=== PATIENT | male | born 1950 | race Caucasian/White ===

== ENCOUNTER → 2023-04-14 07:25 | Outpatient (REF) | payer MEDICARE, OTHER, SELFPAY ==
[2023-04-14 08:55] LABS: % Basophils 0.9 % (0-2); % Eosinophils 4.9 % (0-6); % Immature Granulocytes 0.4 % (0-0.5); % Lymphocytes 17.2 % (20.5-51.1); % Monocytes 7.9 % (1.7-9.3); % Neutrophils 68.7 % (42.2-75.2); Absolute Basophils 0.1 10^3/uL (0-0.2); Absolute Eosinophils 0.6 10^3/uL (0-0.7); Absolute Immature Granulocytes 0.1 10^3/uL (0-0.05); Absolute Lymphocytes 1.9 10^3/uL (1.2-3.4); Absolute Monocytes 0.9 10^3/uL (0.1-0.6); Absolute Neutrophils 7.7 10^3/uL (1.4-6.5); Hematocrit 43.7 % (39.0-52.0); Hemoglobin 14.3 g/dL (13.0-18.0); Mean Corp Hgb Conc. 32.7 g/dL (33.0-37.0); Mean Corpuscular Hgb 30.8 pg (27.0-31.0); Mean Corpuscular Volume 94.2 fL (80.0-94.0); Mean Platelet Volume 10.3 fL (7.4-10.4); Nucleated Red Blood Cells % 0 % (-); Platelet Count 234 10^3/uL (130-400); Red Blood Cell Count 4.64 10^6/uL (4.70-6.10); Red Cell Dist. Width 12.6 % (11.5-14.5); White Blood Cell Count 11.2 10^3/uL (4.8-10.8)
[2023-04-14 09:33] LABS: ALT (SGPT) 29 U/L (0-50); AST (SGOT) 29 U/L (17-59); Albumin 4.2 g/dl (3.5-5.0); Alkaline Phosphatase 93 U/L (38-126); Blood Urea Nitrogen 19 mg/dl (9-20); Calcium 9.3 mg/dl (8.4-10.2); Carbon Dioxide 25 mmol/L (22-30); Chloride 103 mmol/L (98-107); Glucose 113 mg/dl (70-99); HDL Cholesterol 39 mg/dl; LDL Cholesterol, Calculated 50 mg/dl; Potassium 4.4 mmol/L (3.5-5.1); Sodium 136 mmol/L (135-145); Total Bilirubin 0.9 mg/dl (0.2-1.3); Total Cholesterol 142 mg/dl (50-199); Triglyceride 265 mg/dl (10-149); Very Low Density Lipoprotein 53 mg/dl (0-30); eGFR > 60.00
[2023-04-14 11:36] LABS: Glycohemoglobin (HgbA1c) 6.3 % (4.0-5.6)
== END ==
LOC: HWLAB 07:25
PROVIDERS: ATTENDING PHYSICIAN Family Medicine
DX: E78.2 Mixed hyperlipidemia (principal); R73.01 Impaired fasting glucose; G62.9 Polyneuropathy, unspecified
CPT/HCPCS: 36415; 80053; 80061; 83036; 85025

== ENCOUNTER → 2023-09-21 07:47 | Outpatient (REF) | payer MEDICARE, OTHER, SELFPAY ==
[2023-09-21 09:51] LABS: % Basophils 0.7 % (0-2); % Immature Granulocytes 0.5 % (0-0.5); % Lymphocytes 18.3 % (20.5-51.1); % Monocytes 7.8 % (1.7-9.3); % Neutrophils 69.7 % (42.2-75.2); Absolute Basophils 0.1 10^3/uL (0-0.2); Absolute Eosinophils 0.4 10^3/uL (0-0.7); Absolute Immature Granulocytes 0.1 10^3/uL (0-0.05); Absolute Lymphocytes 2.1 10^3/uL (1.2-3.4); Absolute Monocytes 0.9 10^3/uL (0.1-0.6); Absolute Neutrophils 8.1 10^3/uL (1.4-6.5); Hematocrit 41.1 % (39.0-52.0); Hemoglobin 13.9 g/dL (13.0-18.0); Mean Corp Hgb Conc. 33.8 g/dL (33.0-37.0); Mean Corpuscular Hgb 31.4 pg (27.0-31.0); Mean Corpuscular Volume 92.8 fL (80.0-94.0); Mean Platelet Volume 10.6 fL (7.4-10.4); Nucleated Red Blood Cells % 0 % (-); Platelet Count 246 10^3/uL (130-400); Red Blood Cell Count 4.43 10^6/uL (4.70-6.10); Red Cell Dist. Width 12.8 % (11.5-14.5); White Blood Cell Count 11.7 10^3/uL (4.8-10.8)
[2023-09-21 10:21] LABS: ALT (SGPT) 25 U/L (0-50); AST (SGOT) 28 U/L (17-59); Albumin 4.7 g/dl (3.5-5.0); Alkaline Phosphatase 102 U/L (38-126); Blood Urea Nitrogen 21 mg/dl (9-20); Carbon Dioxide 25 mmol/L (22-30); Chloride 101 mmol/L (98-107); Glucose 112 mg/dl (70-99); HDL Cholesterol 45 mg/dl; LDL Cholesterol, Calculated 70 mg/dl; Sodium 137 mmol/L (135-145); Total Bilirubin 0.9 mg/dl (0.2-1.3); Total Cholesterol 144 mg/dl (50-199); Total Protein 7.4 g/dl (6.3-8.2); Triglyceride 148 mg/dl (10-149); Very Low Density Lipoprotein 29 mg/dl (0-30); eGFR > 60.00
[2023-09-21 10:47] LABS: Glycohemoglobin (HgbA1c) 6.2 % (4.0-5.6)
== END ==
LOC: RAD 07:47
PROVIDERS: ATTENDING PHYSICIAN Urology; FAMILY PHYSICIAN Family Medicine
DX: C67.2 Malignant neoplasm of lateral wall of bladder (principal); I82.210 Acute embolism and thrombosis of superior vena cava; E78.2 Mixed hyperlipidemia; R73.01 Impaired fasting glucose; G62.9 Polyneuropathy, unspecified
CPT/HCPCS: 36415; 71260; 74178; 80053; 80061; 83036; 85025; Q9967

== ENCOUNTER 2023-10-06 19:54 | Emergency (ER) | payer MEDICARE, OTHER, SELFPAY ==
[2023-10-06 19:54] VITALS: BMI 34.4
[2023-10-06 19:55] VITALS: BP 133/98
[2023-10-06 20:31] LABS: % Basophils 0.7 % (0-2); % Eosinophils 3.4 % (0-6); % Immature Granulocytes 0.6 % (0-0.5); % Monocytes 7.5 % (1.7-9.3); % Neutrophils 66.8 % (42.2-75.2); Absolute Basophils 0.1 10^3/uL (0-0.2); Absolute Eosinophils 0.4 10^3/uL (0-0.7); Absolute Immature Granulocytes 0.1 10^3/uL (0-0.05); Absolute Lymphocytes 2.2 10^3/uL (1.2-3.4); Absolute Monocytes 0.8 10^3/uL (0.1-0.6); Hematocrit 39.2 % (39.0-52.0); Hemoglobin 13.4 g/dL (13.0-18.0); Mean Corp Hgb Conc. 34.2 g/dL (33.0-37.0); Mean Corpuscular Volume 90.7 fL (80.0-94.0); Mean Platelet Volume 10.4 fL (7.4-10.4); Nucleated Red Blood Cells % 0 % (-); Platelet Count 219 10^3/uL (130-400); Red Blood Cell Count 4.32 10^6/uL (4.70-6.10); Red Cell Dist. Width 12.7 % (11.5-14.5); White Blood Cell Count 10.5 10^3/uL (4.8-10.8)
[2023-10-06 20:32] LABS: Urine Albumin Negative (Neg - Trace); Urine Bilirubin Negative (Negative); Urine Character Clear (Clear); Urine Color Yellow; Urine Glucose Negative (Negative); Urine Ketone Negative (Negative); Urine Leukocyte 1+ (Negative); Urine Nitrite Negative (Negative); Urine Occult Blood 1+ (Negative); Urine Specific Gravity 1.015 (<1.030); Urine Urobilinogen Negative (Neg - 1+)
[2023-10-06 20:39] LABS: Urine Squamous Cell 0-2 /LPF (Few); Urine White Cell 50-60 /HPF (0-5)
[2023-10-06 20:40] LABS: Urine Bacteria Many (Negative)
[2023-10-06 20:45] LABS: ALT (SGPT) 24 U/L (0-50); AST (SGOT) 26 U/L (17-59); Albumin 4.3 g/dl (3.5-5.0); Alkaline Phosphatase 112 U/L (38-126); Blood Urea Nitrogen 22 mg/dl (9-20); Calcium 9.5 mg/dl (8.4-10.2); Carbon Dioxide 25 mmol/L (22-30); Chloride 105 mmol/L (98-107); Glucose 188 mg/dl (70-99); Potassium 4.2 mmol/L (3.5-5.1); Sodium 139 mmol/L (135-145); Total Bilirubin 0.5 mg/dl (0.2-1.3); Total Protein 6.9 g/dl (6.3-8.2); eGFR > 60.00
--- NOTE | 2023-10-06 23:15 | ED.GENMED ---
History of Present Illness
<CANDIE Moraes (Lena) - Last Filed: 10/07/23 02:05>
General
Chief Complaint: Dizziness
Source: patient
Exam Limitations: none
Time Seen by Provider: 10/06/23 22:36
Nursing documentation reviewed up to this point in time: agreed with
History of Present Illness
History of Present Illness:
Pt is a 72yo male with PMHx of bladder cancer s/p chemo (06/2020) and radical cystoprostatectomy s/p ileal conduit diversion (06/2020), and HTN presents to the ED for dizziness with standing since this morning. Pt states he tried standing up from the
couch today, felt 'wobbly' failed to maintain his balance, and had to sit back down. He has not tried to stand up and move around much today since. He reports similar symptoms with prior UTIs in the past. Unknown when last UTI was. He noted that his
urine from his ileal diversion was 'darker colored' this morning. He denies fevers, cough, SOB, chest pain or palpitations, double vision, weakness. No lightheadedness or instability at rest. No abdominal pain or back pain, no change in bowel
habits. States he has been maintaining adequate hydration with drinking 1-2 bottles of water per day. Reports his ileal diversion was last changed this morning, and is changed every 4 days. Pt with difficulty word-finding and hand tremors at rest.
States he has memory loss and tremors that he sees a neurologist for, next appointment on 10/20/23.
Unsure when his last dose of antibiotics was, states it has been months.
Of note, pt had a recent fall with PT 2 weeks ago where he suffered an eyebrow laceration, treated at OSH ([facility]).
Pt lives at home with his son, who brought him in tonight.
Past History
<CANDIE Moraes (Lena) - Last Filed: 10/07/23 02:05>
Past History
ED Past Medical History: Cancer (Bladder), HTN, Hypercholesterolemia and Other (urine retention, gastric ulcers)
ED Past Surgical History: Other (urostomy)
Patient has exhibited threatening behavior?: No
PSI?: No
Social History
Tobacco: Former smoker
Alcohol: None
Personal: Single
Living: alone
Family History
Family History: Other (noncontributory)
Phy Exam
<CANDIE Moraes (Lena) - Last Filed: 10/07/23 02:05>
General Physical Exam
General Presentation: no apparent distress
General age: appears stated age
General Skin: warm and dry
General Habitus: elderly and obese
General Mental: alert
General Hydration: appears well hydrated
General Chronic Disability: other (ileal diversion urostomy)
Cardiovascular Exam
Cardiovascular Exam: regular rate/rhythm, no edema, no gallop, no murmur and normal peripheral pulses
Pulmonary Exam
Pulmonary Exam: no respiratory distress and no cough
Cough: no cough
Gastrointestinal Exam
Gastrointestinal Exam: normal bowel sounds
External Findings: other (ileal diversion urostomy)
Palpation: left upper quadrant: No tenderness, left lower quadrant: No tenderness, right upper quadrant: No tenderness, right lower quadrant: No tenderness and generalized: No tenderness
Neurological Exam
Neurological Exam: alert, oriented x3 and other (pt with trouble word-finding)
Skin Exam
Skin Exam: normal color, warm/dry and no rash
Psychiatric Exam
Psychiatric Exam: normal mood/affect
Course
<CANDIE Moraes (Lena) - Last Filed: 10/07/23 02:05>
Orders/Labs/Results
Orders:
Orders
10/06/23 20:00
EKG [Electrocardiogram (*1)] Urgent
Reason for Study: Vertigo / Dizzy
EKG- Treatment ONCE
10/06/23 20:21
CBC/With Diff [Complete Blood Count/With Diff] Urgent
CMP [Comprehensive Metabolic Panel] Urgent
Urinalysis Reflex To Culture Urgent
Date Specimen was Collected: 10/06/23
Time Specimen was Collected: 20:00
Urine Microscopic Reflex Cult Urgent
Urine Culture Urgent
MYRIAM Source: U
Specimen Description:
Date Specimen was Collected: 10/06/23
Time Specimen was Collected: 20:00
10/06/23 23:23
Orthostatic VS- Treatment ONCE
10/07/23 00:00
Doxycycline [Vibramycin] 100 mg PO NOW STA
10/07/23 00:03
Meclizine [Antivert] 25 mg PO NOW STA
Abnormal Lab Results
10/06/23
20:21
RBC 4.32 L 10^6/uL
(4.70-6.10)
Abs Immat Gran (auto) 0.1 H 10^3/uL
(0-0.05)
Absolute Neuts (auto) 7.0 H 10^3/uL
(1.4-6.5)
Absolute Monos (auto) 0.8 H 10^3/uL
(0.1-0.6)
Immature Gran % 0.6 H %
(0-0.5)
BUN 22 H mg/dl
(9-20)
Glucose 188 H mg/dl
(70-99)
Ur Occult Blood Reflex 1+ A
(Negative)
Leukocyte Esterase Rfl 1+ A
(Negative)
Urine RBC 7-10 A /HPF
(0-2)
Urine WBC (Reflex) 50-60 A /HPF
(0-5)
Urine Bacteria (Reflex) Many A
(Negative)
10/06/23 20:21
10/06/23 20:21
Vital Signs
Initial and Last Documented VS:
Initial Vital Signs
Temp Pulse Resp BP Pulse Ox
97.6 F 72 18 133/98 97
10/06/23 19:55 10/06/23 19:55 10/06/23 19:55 10/06/23 19:55 10/06/23 19:55
Last Documented Vital Signs
Temp Pulse Resp BP Pulse Ox
97.6 F 72 18 119/74 97
10/06/23 19:55 10/06/23 19:55 10/06/23 19:55 10/07/23 01:00 10/07/23 00:11
<Patricia Goins, DO - Last Filed: 10/07/23 01:41>
Orders/Labs/Results
Orders:
Orders
10/06/23 20:00
EKG [Electrocardiogram (*1)] Urgent
Reason for Study: Vertigo / Dizzy
EKG- Treatment ONCE
10/06/23 20:21
CBC/With Diff [Complete Blood Count/With Diff] Urgent
CMP [Comprehensive Metabolic Panel] Urgent
Urinalysis Reflex To Culture Urgent
Date Specimen was Collected: 10/06/23
Time Specimen was Collected: 20:00
Urine Microscopic Reflex Cult Urgent
Urine Culture Urgent
MYRIAM Source: U
Specimen Description:
Date Specimen was Collected: 10/06/23
Time Specimen was Collected: 20:00
10/06/23 23:23
Orthostatic VS- Treatment ONCE
10/07/23 00:00
Doxycycline [Vibramycin] 100 mg PO NOW STA
10/07/23 00:03
Meclizine [Antivert] 25 mg PO NOW STA
Abnormal Lab Results
10/06/23
20:21
RBC 4.32 L 10^6/uL
(4.70-6.10)
Abs Immat Gran (auto) 0.1 H 10^3/uL
(0-0.05)
Absolute Neuts (auto) 7.0 H 10^3/uL
(1.4-6.5)
Absolute Monos (auto) 0.8 H 10^3/uL
(0.1-0.6)
Immature Gran % 0.6 H %
(0-0.5)
BUN 22 H mg/dl
(9-20)
Glucose 188 H mg/dl
(70-99)
Ur Occult Blood Reflex 1+ A
(Negative)
Leukocyte Esterase Rfl 1+ A
(Negative)
Urine RBC 7-10 A /HPF
(0-2)
Urine WBC (Reflex) 50-60 A /HPF
(0-5)
Urine Bacteria (Reflex) Many A
(Negative)
10/06/23 20:21
10/06/23 20:21
Vital Signs
Initial and Last Documented VS:
Initial Vital Signs
Temp Pulse Resp BP Pulse Ox
97.6 F 72 18 133/98 97
10/06/23 19:55 10/06/23 19:55 10/06/23 19:55 10/06/23 19:55 10/06/23 19:55
Last Documented Vital Signs
Temp Pulse Resp BP Pulse Ox
97.6 F 72 18 119/74 97
10/06/23 19:55 10/06/23 19:55 10/06/23 19:55 10/07/23 01:00 10/07/23 00:11
<CANDIE Moraes (Lena) - Last Filed: 10/07/23 02:05>
MDM/Problems Addressed
Differential Diagnosis Includes:
Pt is a 72yo male with PMHx of bladder cancer s/p chemo (06/2020) and radical cystoprostatectomy s/p ileal conduit diversion (06/2020), and HTN presents to the ED for dizziness with standing since this morning. He states he felt 'wobbly' and
imbalanced when attempting to stand, but denied visual changes. Orthostatic vitals were obtained and were negative, ruling out orthostatic hypotension. Pt states he has been maintaining adequate hydration with 1-2 bottles of water consumed daily.
Other sources of infection were considered, but he presents asymptomatic in regards to fevers, chest pain, dyspnea, abdominal pain, back pain. A UA was obtained and was positive for leuk esterase, WBC 50-60/HPF, and significant bacteruria. Pt will
be treated with a course of doxycycline.
Chronic conditions affecting care: HTN and Cancer (bladder)
<Patricia Goins DO - Last Filed: 10/07/23 01:41>
*Pulse Oximetry
Patient hypoxic: no
*Critical Care Note
Total Time (30-74mins, 75-104mins- exclusive of procedures): Not Applicable
ED Attending Note
<CANDIE Moraes (Lena) - Last Filed: 10/07/23 02:05>
-
Portions of this chart may have been created with voice recognition software.� Occasional wrong word or��sound alike� substitutions may have occurred due to the inherent limitations of voice recognition software.
<Patricia Goins DO - Last Filed: 10/07/23 01:41>
ED Attending Note
Patient seen and examined by attending physician: Yes
I performed the substantive portion of visit, reviewed & personally made and approve the management plan that is documented in note by myself or NAY.: Yes
ED Attending Note:
This is a 72-year-old gentleman who resides at home with his son. He has history of bladder cancer status post radical cystectomy with ileal conduit formation 2020, status post chemotherapy, follows regularly with urology, Dr. Lizama with
surveillance CTs, thus far no evidence of recurrence.
He also has history of hypertension, hyperlipidemia, peptic ulcer disease, mild dementia as well as tremor and prior history of UTIs with hospitalization June 2022 for UTI/sepsis and hospitalization December 2021 for similar complaints of dizziness,
lightheadedness December 2021. Noted to have UTI at that time. CT as well as MRI of the brain showed no evidence of acute stroke.
He presents tonight with complaints of dizziness, feeling wobbly with standing that began this morning upon standing. He is unsure if he felt lightheaded versus a sense of movement but no other associated symptoms. No nausea or vomiting, no
headache, no fever or chills, no chest pain or palpitations, no abdominal pain, no diarrhea nor constipation.
Ileal conduit has been functioning normally. He does note that his urine was somewhat darker in color today but denies hematuria.
He has been drinking fluids well.
He notes similar symptoms of lightheadedness, dizziness with previous UTIs.
GENERAL: Alert , in no apparent distress. 72-year-old gentleman appears his stated age, appears in no acute distress. Afebrile. Normotensive.
EYE: pupils equal and reactive. anicteric. Extraocular muscles intact. Minimal lateral gaze nystagmus bilaterally. Negative test of skew.
NECK: Supple, nontender, no meningismus, no significant adenopathy.
ENT: posterior pharynx is clear, oral mucosa is moist. TM clear b/l, nares patent.
CARDIAC: Regular rate and rhythm. no murmur.
LUNGS: Clear breath sounds bilaterally, no acute respiratory distress, no wheezes/rales/rhonchi
ABDOMEN: Rotund, soft, nondistended, without focal tenderness, ileal conduit left mid abdomen draining clear yellow urine. No r/g, no cvat. normoactive BS.
NEUROLOGICAL: Alert and oriented x3, no focal neuro deficits. Mild intention tremor of upper extremities. Mild cogwheel rigidity of bilateral upper extremities. No focal weakness.
SKIN: Warm and dry, normal color, skin intact. No rash.
MUSCULOSKELETAL: No C/C/E. peripheral pulses are full and equal b/l. No palpable tenderness.
PSYCH: Normal and appropriate interaction.
Concern for vertigo peripheral versus central, concern for orthostasis. Other consideration is arrhythmia however the palpitations and symptoms only occur with standing this unlikely.
Concern for UTI as patient has had somewhat similar symptoms with previous UTIs.
Labs are reassuring with normal white blood cell count, unremarkable chemistries with creatinine of 1.2, at his baseline. Glucose 188. Similar sporadic elevations noted previously and I suspect an element of impaired fasting glucose. No previous
diagnosis of diabetes and no acidosis on electrolytes.
Urinalysis consistent with UTI showing many bacteria, 50-60 WBCs, 7-10 RBCs.
Vital signs are reassuring, he remains afebrile.
Will check orthostatic vital signs assess for potential orthostasis as cause for symptoms.
Will initiate doxycycline for UTI.
At this point no indication for imaging but will consider if clinical status changes.
10/07/2023 0005 AM
Orthostatic vital signs are negative.
Patient noted brief dizziness with change in position from lying to sitting but asymptomatic from sitting to standing.
I do suspect an element of vertigo and patient notes prior history of vertigo.
Will trial a dose of Antivert and continue to observe.
Again, reassuring that symptoms are very brief in nature without other associated symptoms.
10/07/2023 0139 AM
Patient feeling improved after dose of meclizine.
Remains hemodynamically stable.
No further dizziness.
Will discharge to home with 10-day course of doxycycline for UTI as well is a prescription for meclizine for as needed dizziness.
Discussed importance of remaining well-hydrated on a daily basis.
Encouraged to use his walker to assist with ambulation.
Follow-up with PCP as well as urologist and continue follow-up with neurologist as scheduled.
Return precautions discussed.
Discharge Plan
Departure
Patient Disposition: Home (Routine Discharge)
Date of Disposition: 10/07/23
Time of Disposition: 01:36
Patient with high blood pressure during this ER visit?: No
Condition: Good
Discharge Problem:
Dizziness on standing, Urinary tract infection
Instructions: Vertigo (a Type of Dizziness) (DC), Urinary Tract Infection - Men
Prescriptions:
New
doxycycline monohydrate 100 mg capsule
100 mg PO BID Qty: 20 1RF
meclizine 25 mg tablet
25 mg PO QID PRN (Reason: dizziness) Qty: 20 0RF
No Action
atorvastatin 40 MG tablet
40 mg PO DAILY
metoprolol succinate [Toprol XL] 50 MG tablet extended release 24 hr
50 mg PO DAILY
cyanocobalamin (vitamin B-12) 1,000 mcg Tablet
1,000 mcg PO DAILY
therapeutic multivitamin Tablet
1 tab PO DAILY
famotidine [Pepcid] 20 mg Tablet
20 mg PO DAILY PRN (Reason: heartburn)
gabapentin 100 mg capsule
100 mg PO TID
polyethylene glycol 3350 [HealthyLax] 17 gram Powder In Packet
17 g PO DAILY PRN (Reason: Constipation) Qty: 14 0RF
Referrals:
Rashaad Hanna MD [Family Provider] - Call in 1-3 days for appt
Kalia Lizama MD [Active] - Call in 1-3 days for appt
Interventions
Interventions:
*Risk Screen - Suicide Last Done: 10/06/23 19:55
*General Assessment Last Done: 10/06/23 23:40
*Neglect/Abuse Screening Last Done: 10/06/23 23:40
ED- Fall Risk Assessment Last Done: 10/06/23 23:40
*ED COVID-19 Vaccine History Last Done: 10/06/23 23:40
Discharge Date and Time
Print Language: AMHARIC
[2023-10-06 23:23] VITALS: BP 126/100; BP 132/92; BP 148/83; PULSE 64; PULSE 72; PULSE 94
[2023-10-06 23:29] VITALS: BP 132/92
[2023-10-06 23:33] VITALS: BP 126/100
[2023-10-06 23:36] VITALS: BP 148/83
[2023-10-07] VITALS: BP 128/73
[2023-10-07] MEDS: VIBRAMYCIN 100 MG PO (00:10)
[2023-10-07] MEDS: ANTIVERT 25 MG PO (00:11)
[2023-10-07 01:00] VITALS: BP 119/74
[2023-10-07 02:00] VITALS: BP 137/77
[2023-10-07 03:00] VITALS: BP 149/69
== END 2023-10-07 03:49 | disposition home or self-care (01) ==
LOC: EMR 19:54
PROVIDERS: Emergency Medicine; EMERGENCY PHYSICIAN Emergency Medicine; FAMILY PHYSICIAN Family Medicine
DX: R42 Dizziness and giddiness (principal); N39.0 Urinary tract infection, site not specified; I10 Essential (primary) hypertension; E78.00 Pure hypercholesterolemia, unspecified; Z85.51 Personal history of malignant neoplasm of bladder; Z87.11 Personal history of peptic ulcer disease; Z87.440 Personal history of urinary (tract) infections; Z87.891 Personal history of nicotine dependence; Z92.21 Personal history of antineoplastic chemotherapy
CPT/HCPCS: 99283; 80053; 81003; 81015; 85025; 87086

== ENCOUNTER 2024-03-14 08:11 | Emergency (ER) | payer MEDICARE, OTHER, SELFPAY ==
[2024-03-14 08:14] VITALS: BP 165/76
--- NOTE | 2024-03-14 09:39 | ED.GENMED ---
History of Present Illness
General
Chief Complaint: Male Genito-Urinary Symptoms
Source: patient
Exam Limitations: none
Time Seen by Provider: 03/14/24 09:22
Nursing documentation reviewed up to this point in time: agreed with
History of Present Illness
History of Present Illness:
Patient with history of bladder cancer and chronic urostomy bag, presents to ED for an evaluation after he accidentally removed the urostomy bag this morning. Patient states that he had 'nightmare' and excellently removed the bag. When he
reattached the urostomy bag, he noted 'blood' in the bag. Patient does not take any blood thinning medications. Denies previous history of similar symptoms. Denies recent trauma. Denies dizziness or weakness.
Past History
Past History
ED Past Medical History: Cancer (Bladder), HTN, Hypercholesterolemia and Other (urine retention, gastric ulcers)
ED Past Surgical History: Other (urostomy)
Patient has exhibited threatening behavior?: No
PSI?: No
Social History
Tobacco: Former smoker
Alcohol: None
Personal: Single
Living: alone
Family History
Family History: Other (noncontributory)
Review of Systems
Review of Systems
Allergies reviewed?: Yes
All Other Systems: ROS reviewed and negative except as documented in HPI and ROS
Constitutional: Reports no symptoms; Denies fever or chills
ABD/GI: Reports no symptoms; Denies abdominal pain, nausea or vomiting
: Reports bleeding
Musculoskeletal: Reports no symptoms
Skin: Reports no symptoms
Neurological: Reports no symptoms; Denies weakness
Phy Exam
Physical Exam
Physical Exam:
Physical Exam
General: no apparent distress, not acutely ill. afebrile.
Head: nc/at. eomi
Neck: supple. normal range of motion.
Abdomen: normal bowel sounds. not tender. urostomy bag noted with dark urine inside
Neuro: alert and oriented. no focal neurological deficits
Skin: no rash
Psychiatric: well kept. interactive and cooperative
Extremities: no edema. no calf tenderness.
Course
Orders/Labs/Results
Orders:
Orders
03/14/24 09:35
Urinalysis Reflex To Culture Urgent
Date Specimen was Collected: 03/14/24
Time Specimen was Collected: 09:34
Urine Microscopic Reflex Cult Urgent
Urine Culture Urgent
MYRIAM Source: U
Specimen Description:
Date Specimen was Collected: 03/14/24
Time Specimen was Collected: 09:34
Abnormal Lab Results
03/14/24
09:35
Ur Occult Blood Reflex 4+ A
(Negative)
Leukocyte Esterase Rfl 1+ A
(Negative)
Urine RBC 70-80 A /HPF
(0-2)
Urine WBC (Reflex) 16-20 A /HPF
(0-5)
Urine Bacteria (Reflex) Moderate A
(Negative)
Vital Signs
Initial and Last Documented VS:
Initial Vital Signs
Temp Pulse Resp BP Pulse Ox
97.5 F 61 16 165/76 98
03/14/24 08:14 03/14/24 08:14 03/14/24 08:14 03/14/24 08:14 03/14/24 08:14
Last Documented Vital Signs
Temp Pulse Resp BP Pulse Ox
97.5 F 60 18 119/72 98
03/14/24 08:14 03/14/24 09:55 03/14/24 09:55 03/14/24 10:14 03/14/24 09:55
MDM/Problems Addressed
MDM/Problems Addressed:
Upon gross evaluation, no overt evidence of bleeding noted within urostomy bag. Urinalysis result reviewed and discussed with on-call urology, , who feels that patient's urine result is likely colonization, not necessarily infection. Does
not recommend antibiotic treatment at this time. However, does recommend that patient keeps close eye on his urine color, and if bloody urine persists, recommends tat patient call urology office for an outpatient evaluation with his primary
urologist, Dr. Lizama.
Patient expresses understanding, at time of discharge, to the care of his family.
*Critical Care Note
Total Time (30-74mins, 75-104mins- exclusive of procedures): Not Applicable
ED Attending Note
-
Portions of this chart may have been created with voice recognition software.� Occasional wrong word or��sound alike� substitutions may have occurred due to the inherent limitations of voice recognition software.
Discharge Plan
Departure
Patient Disposition: Home (Routine Discharge)
Date of Disposition: 03/14/24
Time of Disposition: 11:05
Patient with high blood pressure during this ER visit?: Yes
Condition: Good
Discharge Problem:
Hematuria
Instructions: Blood in the Urine (Hematuria), Adult (DC)
Prescriptions:
No Action
atorvastatin 40 MG tablet
40 mg PO DAILY
metoprolol succinate [Toprol XL] 50 MG tablet extended release 24 hr
50 mg PO DAILY
cyanocobalamin (vitamin B-12) 1,000 mcg Tablet
1,000 mcg PO DAILY
therapeutic multivitamin Tablet
1 tab PO DAILY
famotidine [Pepcid] 20 mg Tablet
20 mg PO DAILY PRN (Reason: heartburn)
gabapentin 100 mg capsule
100 mg PO TID
polyethylene glycol 3350 [HealthyLax] 17 gram Powder In Packet
17 g PO DAILY PRN (Reason: Constipation) Qty: 14 0RF
doxycycline monohydrate 100 mg capsule
100 mg PO BID Qty: 20 1RF
meclizine 25 mg tablet
25 mg PO QID PRN (Reason: dizziness) Qty: 20 0RF
Referrals:
Rashaad Hanna MD [Family Provider] -
Kalia Lizama MD [Active] -
Activity Restrictions/Additional Instructions:
As discussed, please follow-up with your urologist with any further concerns.
Interventions
Interventions:
*Risk Screen - Suicide Last Done: 03/14/24 08:14
*General Assessment Last Done: 03/14/24 09:50
*Neglect/Abuse Screening Last Done: 03/14/24 08:14
ED- Fall Risk Assessment Last Done: 03/14/24 11:19
*ED COVID-19 Vaccine History Last Done: 03/14/24 09:50
*Nursing Disposition Last Done: 03/14/24 11:19
ED-Male Genitourinary Assessment Last Done: 03/14/24 09:50
Discharge Date and Time
Discharge Date/Time: 03/14/24 11:20
Print Language: ROMANSH
[2024-03-14 09:52] LABS: Urine Albumin Trace (Neg - Trace); Urine Bilirubin Negative (Negative); Urine Character Very Cloudy (Clear); Urine Color Yellow; Urine Glucose Negative (Negative); Urine Ketone Negative (Negative); Urine Leukocyte 1+ (Negative); Urine Nitrite Negative (Negative); Urine Occult Blood 4+ (Negative); Urine Specific Gravity 1.015 (<1.030); Urine Urobilinogen Negative (Neg - 1+)
[2024-03-14 10:01] LABS: Urine Red Blood Cell 70-80 /HPF (0-2)
[2024-03-14 10:02] LABS: Urine Bacteria Moderate (Negative); Urine White Cell 16-20 /HPF (0-5)
[2024-03-14 10:14] VITALS: BP 119/72
== END 2024-03-14 11:20 | disposition home or self-care (01) ==
LOC: EMR 08:11
PROVIDERS: EMERGENCY PHYSICIAN Emergency Medicine; FAMILY PHYSICIAN Family Medicine
DX: R31.9 Hematuria, unspecified (principal); Z85.51 Personal history of malignant neoplasm of bladder; I10 Essential (primary) hypertension; E78.00 Pure hypercholesterolemia, unspecified; Z87.891 Personal history of nicotine dependence; Z87.11 Personal history of peptic ulcer disease; Z96.0 Presence of urogenital implants
CPT/HCPCS: 99283; 81003; 81015; 87086

== ENCOUNTER → 2024-05-29 09:26 | Outpatient (REF) | payer MEDICARE, OTHER, SELFPAY ==
[2024-05-29 10:59] LABS: % Basophils 0.6 % (0-2); % Eosinophils 2.3 % (0-6); % Immature Granulocytes 0.6 % (0-0.5); % Lymphocytes 20.8 % (20.5-51.1); % Monocytes 8.5 % (1.7-9.3); % Neutrophils 67.2 % (42.2-75.2); Absolute Basophils 0.1 10^3/uL (0-0.2); Absolute Eosinophils 0.3 10^3/uL (0-0.7); Absolute Immature Granulocytes 0.1 10^3/uL (0-0.05); Absolute Lymphocytes 2.3 10^3/uL (1.2-3.4); Absolute Neutrophils 7.5 10^3/uL (1.4-6.5); Hematocrit 43.5 % (39.0-52.0); Hemoglobin 14.3 g/dL (13.0-18.0); Mean Corp Hgb Conc. 32.9 g/dL (33.0-37.0); Mean Corpuscular Hgb 30.7 pg (27.0-31.0); Mean Corpuscular Volume 93.3 fL (80.0-94.0); Mean Platelet Volume 10.8 fL (7.4-10.4); Nucleated Red Blood Cells % 0 % (-); Platelet Count 248 10^3/uL (130-400); Red Blood Cell Count 4.66 10^6/uL (4.70-6.10); Red Cell Dist. Width 12.4 % (11.5-14.5); White Blood Cell Count 11.2 10^3/uL (4.8-10.8)
[2024-05-29 11:45] LABS: Glycohemoglobin (HgbA1c) 6.1 % (4.0-5.6)
[2024-05-29 13:19] LABS: ALT (SGPT) 14 U/L (0-50); AST (SGOT) 28 U/L (17-59); Albumin 4.4 g/dl (3.5-5.0); Alkaline Phosphatase 83 U/L (38-126); Blood Urea Nitrogen 20 mg/dl (9-20); Calcium 9.8 mg/dl (8.4-10.2); Carbon Dioxide 25 mmol/L (22-30); Chloride 102 mmol/L (98-107); Glucose 114 mg/dl (70-99); HDL Cholesterol 41 mg/dl; LDL Cholesterol, Calculated 64 mg/dl; Potassium 4.7 mmol/L (3.5-5.1); Sodium 139 mmol/L (135-145); Total Bilirubin 1.4 mg/dl (0.2-1.3); Total Cholesterol 136 mg/dl (50-199); Total Protein 7.4 g/dl (6.3-8.2); Triglyceride 157 mg/dl (10-149); Very Low Density Lipoprotein 31 mg/dl (0-30); eGFR > 60.00
== END ==
LOC: HWLAB 09:26
PROVIDERS: ATTENDING PHYSICIAN Family Medicine
DX: R73.01 Impaired fasting glucose (principal); G62.9 Polyneuropathy, unspecified; E78.2 Mixed hyperlipidemia
CPT/HCPCS: 36415; 80053; 80061; 83036; 85025

== ENCOUNTER → 2024-11-07 11:37 | Outpatient (REF) | payer MEDICARE, OTHER, SELFPAY ==
[2024-11-07 16:31] LABS: Blood Urea Nitrogen 17 mg/dl (9-20); Calcium 9.7 mg/dl (8.4-10.2); Carbon Dioxide 29 mmol/L (22-30); Chloride 103 mmol/L (98-107); Glucose 102 mg/dl (70-99); Potassium 4.6 mmol/L (3.5-5.1); Sodium 138 mmol/L (135-145); eGFR > 60.00
[2024-11-07 16:38] LABS: Hematocrit 43.1 % (39.0-52.0); Hemoglobin 13.9 g/dL (13.0-18.0); Mean Corp Hgb Conc. 32.3 g/dL (33.0-37.0); Mean Corpuscular Volume 93.1 fL (80.0-94.0); Platelet Count 239 10^3/uL (130-400); Red Cell Dist. Width 12.4 % (11.5-14.5)
[2024-11-07 17:21] LABS: Vitamin B12 315 pg/ml (239-931)
== END ==
LOC: HWLAB 11:37
PROVIDERS: ATTENDING PHYSICIAN Urology; FAMILY PHYSICIAN Family Medicine
DX: C67.2 Malignant neoplasm of lateral wall of bladder (principal); F03.90 Unspecified dementia, unspecified severity, without behavioral disturbance, psychotic disturbance, mood disturbance, and anxiety
CPT/HCPCS: 36415; 80048; 82607; 85027

== ENCOUNTER → 2024-11-10 11:35 | Outpatient (REF) | payer MEDICARE, OTHER, SELFPAY | LOC: RAD 11:35 | PROVIDERS: ATTENDING PHYSICIAN Urology; FAMILY PHYSICIAN Family Medicine | DX: C67.2 Malignant neoplasm of lateral wall of bladder (principal); R31.0 Gross hematuria | CPT/HCPCS: 71260; 74178; Q9967 ==